=== PATIENT | female | born 1965 | race African-American/Black ===

== ENCOUNTER 2019-01-23 15:10 | Inpatient (IN) | payer OTHER ==
[2019-01-23 18:52] VITALS: BMI 30.8
--- NOTE | 2019-01-23 21:56 | HP ---
COWS - Scale Resting Pulse: 0= MS 80 or Below Sweatin= Chills/Flushing Restless Observation: 3= Extraneous Movement Pupil Size: 0= Normal to Room Light Bone or Joint Aches: 4=Acute Joint/Muscle Pain Runny Nose/ Eye Tearin= Runny Nose/Eyes GI Upset > 30mins: 1= Stomach Cramp Tremor Observation: 1= Tremor Garber, Not Seen Yawning Observation: 1= 1-2x During Session Anxiety or Irritability: 2=Irritable/Anxious Goose Flesh Skin: 0=Smooth Skin COWS Score: 15 CIWA Score Nausea/Vomitin-No Nausea/No Vomiting Muscle Tremors: 1-None Visible, but Garber Anxiety: 4-Mod. Anxious/Guarded Agitation: 4-Moderately Restless Paroxysmal Sweats: 3 Orientation: 1-Uncertain about Date Tacttile Disturbances: 3-Moderate Itch/Numb/Burn Auditory Disturbances: 0-None Visual Disturbances: 3-Moderate Sensitivity Headache: 3-Moderate CIWA-Ar Total Score: 22 - Admission Criteria OASAS Guidelines: Admission for Medically Managed Detox: Requires at least one of the followin. CIWA greater than 12 2. Seizures within the past 24 hours 3. Delirium tremens within the past 24 hours 4. Hallucinations within the past 24 hours 5. Acute intervention needed for co occurring medical disorder 6. Acute intervention needed for co occurring psychiatric disorder 7. Severe withdrawal that cannot be handled at a lower level of care (continued vomiting, continued diarrhea, abnormal vital signs) requiring intravenous medication and/or fluids 8. Admission ROS [facility] Chief Complaint: C/O WITHDRAWAL SX'S Allergies/Adverse Reactions: Allergies Allergy/AdvReac Type Severity Reaction Status Date / Time No Known Allergies Allergy Verified 01/23/19 18:44 History of Present Illness: 53 Y.O. FEMALE WITH ALCOHOLISM AND HEROIN DEPENDENCE HERE FOR DETOX. PRESENTS WITH C/O WITHDRAWAL SX'S. COWS 15/CIWA 22. SHE IS SELF REFERRED. STATES LAST DETOX WAS 3 YEARS AGO WHEN SHE WAS LAST HERE. REPORTS LONGEST CLEAN TIME 6 MONTHS WHILE INCARCERATED IN THE PAST 3 YEARS. REPORTS DAILY USE OF HEROIN/ ACOHOL. + EYE TEMPLATE FITTER. DENIES BLACK OUTS, SEIZURE D/O, DRUG OVERDOSE. + USE OF COCAINE. DOMICILED, SSI/D, PROBATION Exam Limitations: No Limitations - Ebola screening Have you traveled outside of the country in the last 21 days: No Have you had contact with anyone from an Ebola affected area: No Have you been sick,other than usual withdrawal symptoms: No Do you have a fever: No - Review of Systems Constitutional: Chills, Malaise, Night Sweats, Changes in sleep EENT: reports: Blurred Vision (GLASSES), Tearing, Nose Congestion (WITH RUNNY NOSE), Dental Problems (MISSING TEETH), Throat Pain (SORE THROAT) Respiratory: reports: No Symptoms reported Cardiac: reports: No Symptoms Reported GI: reports: Nausea, Poor Fluid Intake, Abdominal cramping : reports: No Symptoms Reported Musculoskeletal: reports: Back Pain, Joint Pain Integumentary: reports: Sweating Neuro: reports: Headache, Tingling, Tremors Endocrine: reports: No Symptoms Reported Hematology: reports: No Symptoms Reported Psychiatric: reports: Agitated (IRRITABLE), Anxious, Depressed (DENIES SI/HI), other Other Systems: Reviewed and Negative Patient History - Patient Medical History Hx Anemia: No Hx Asthma: Yes (ON ALBUTEROL INHALER) Hx Chronic Obstructive Pulmonary Disease (COPD): No Hx Cancer: No Hx Cardiac Disorders: No Hx Congestive Heart Failure: No Hx Hypertension: Yes (NOT COMPLIANT WITH MEDS) Hx Hypercholesterolemia: No Hx Pacemaker: No HX Cerebrovascular Accident: No Hx Seizures: No Hx Dementia: No Hx Diabetes: No Hx Gastrointestinal Disorders: No Hx Liver Disease: No Hx Genitourinary Disorders: No Hx Sexually Transmitted Disorders: No Hx Renal Disease (ESRD): No Hx Thyroid Disease: No Hx Human Immunodeficiency Virus (HIV): No Hx Hepatitis C: No Hx Depression: Yes Hx Suicide Attempt: No Hx Bipolar Disorder: Yes Hx Schizophrenia: No Other Medical History: DENIES - Patient Surgical History Past Surgical History: No Hx Neurologic Surgery: No Hx Cataract Extraction: No Hx Cardiac Surgery: No Hx Lung Surgery: No Hx Breast Surgery: No Hx Breast Biopsy: No Hx Abdominal Surgery: No Hx Appendectomy: No Hx Cholecystectomy: No Hx Genitourinary Surgery: No Hx Section: No Hx Orthopedic Surgery: No Anesthesia Reaction: No - PPD History Previous Implant?: Yes Documented Results: Negative w/proof Implanted On Prior R Admission?: Yes Date: 08/22/15 PPD to be Administered?: Yes - Reproductive History Patient is a Female of Child Bearing Age (11 -55 yrs old): Yes Last Menstrual Period: 12/24/17 LMP comment: MENAPAUSE Patient : No (NEG [facility] [place]) - Smoking Cessation Smoking history: Current every day smoker Aproximately how many cigarettes per day: 5 Cigars Per Day: 0 Hx Chewing Tobacco Use: No Initiated information on smoking cessation: Yes 'Breaking Loose' booklet given: 01/23/19 - Substance & Tx. History Substance Use Type: Alcohol, Cocaine, Heroin Hx Substance Use Treatment: Yes ([facility]) - Substances abused Alcohol Other (specify): LIQUOR Substance route: Oral Frequency: 3-6 times per week (3X A WEEK) Amount used: 1 pint, Age of first use: 21 Date of last use: 01/20/19 Heroin Substance route: Inhalation Frequency: Daily Amount used: 1 bundle/day Age of first use: 21 Date of last use: 01/22/19 Cocaine Substance route: Smoking Frequency: 3-6 times per week (3X) Amount used: $25 Age of first use: Date of last use: 01/20/19 Family Disease History - Family Disease History Family Disease History: Diabetes: Father, Heart Disease: Father Admission Physical Exam S - Vital Signs Vital Signs: Vital Signs - 24 hr 01/23/19 01/23/19 18:42 19:27 Temperature 98.5 F 98.5 F Pulse Rate 77 77 Respiratory 17 17 Rate Blood Pressure 174/96 H 174/96 H - Physical General Appearance: Yes: Moderate Distress, Irritable, Sweating, Anxious HEENTM: Yes: EOMI, Normocephalic, Normal Voice, EZEKIEL, Pharynx Normal, Rhinorrhea (with tearing of the eyes), Other (missing teeth) Respiratory: Yes: Chest Non-Tender, Lungs Clear, Normal Breath Sounds, No Respiratory Distress, No Accessory Muscle Use Neck: Yes: No masses,lesions,Nodules, Supple, Trachea in good position Breast: Yes: Breast Exam Deferred Cardiology: Yes: Regular Rhythm, Regular Rate, S1, S2 Abdominal: Yes: Non Tender, Soft Genitourinary: Yes: Within Normal Limits Back: Yes: Normal Inspection Musculoskeletal: Yes: full range of Motion, Gait Steady Extremities: Yes: Normal Capillary Refill, Normal Range of Motion, Non-Tender Neurological: Yes: Fully Oriented, Alert, Motor Strength 5/5, Depressed Affect Integumentary: Yes: Clammy Lymphatic: Yes: Within Normal Limits - Diagnostic (1) Opioid dependence with withdrawal Current Visit: Yes Status: Acute (2) Depression Current Visit: Yes Status: Acute Qualifiers: Depression Type: unspecified Qualified Code(s): F32.9 - Major depressive disorder, single episode, unspecified (3) Cocaine dependence Current Visit: Yes Status: Acute Qualifiers: Complication of substance-induced condition: with unspecified complication (4) Alcohol dependence with uncomplicated withdrawal Current Visit: Yes Status: Acute (5) Bipolar II disorder Current Visit: Yes Status: Chronic (6) Nicotine dependence Current Visit: Yes Status: Chronic Qualifiers: Nicotine product type: cigarettes Substance use status: uncomplicated Qualified Code(s): F17.210 - Nicotine dependence, cigarettes, uncomplicated (7) HTN (hypertension) Current Visit: Yes Status: Chronic Comment: not complaint with meds (8) Asthma Current Visit: Yes Status: Acute Qualifiers: Asthma severity: mild Asthma persistence: intermittent Asthma complication type: unspecified Qualified Code(s): J45.20 - Mild intermittent asthma, uncomplicated (9) Non compliance w medication regimen Current Visit: Yes Status: Acute Cleared for Admission S - Detox or Rehab [facility] Level of Care: Medically Managed Detox Regimen/Protocol: Methadone (W/ PRN CLONIDINE.WILL DETOX FROM HEROIN. CLIENT DRINKS 3 TIMES A WEEK. LAST USE 3 DAYS AGO) Claeared for Rehab Admission: No Breathalyzer - Breathalyzer Breathalyzer: 0 Urine Drug Screen - Test Device Lot number: [id number] Expiration date: 11/15/20 - Control Is test valid?: Yes - Results Drug screen NEGATIVE: No Urine drug screen results: CLARK-Cocaine, FEN-Fentanyl, MOP-Opiates Inpatient Rehab Admission - Rehab Decision to Admit Inpatient rehab admission?: No
[2019-01-23] MEDS ORDERED: P-EPHED 60MG/TRIPROLIDI 2.5MG TABLET PO PRN (22:08)
[2019-01-23] MEDS ORDERED: DICYCLOMINE HCL 10 MG CAPSULE PO PRN (22:08)
[2019-01-23] MEDS ORDERED: METHADONE HCL 10 MG TABLET (FOR DETOX USE ONLY) PO ONE (22:08)
[2019-01-23] MEDS ORDERED: NICOTINE POLACRILEX 2 MG GUM BUC PRN (22:08)
[2019-01-23] MEDS ORDERED: NALOXONE HCL 0.4 MG/ML VIAL IVPUSH PRN (22:08)
[2019-01-23] MEDS ORDERED: BISMUTH SUBSALICYLATE 524 MG/30 ML UD PO PRN (22:08)
[2019-01-23] MEDS ORDERED: MENTHOL/PHENOL 1 EACH UD MM PRN (22:08)
[2019-01-23] MEDS ORDERED: IBUPROFEN 400 MG TABLET (FP) PO PRN (22:08)
[2019-01-23] MEDS ORDERED: MAGNESIUM CITRATE 300 ML BOTTLE PO PRN (22:08)
[2019-01-23] MEDS ORDERED: ACETAMINOPHEN 325 MG TABLET (FP) PO PRN ×2 (22:08)
[2019-01-23] MEDS ORDERED: MAG HYDROX/AL HYDROX/SIMETH 30 ML UNIT-DOSE CUP PO PRN (22:08)
[2019-01-23] MEDS ORDERED: MAGNESIUM HYDROX 2400MG/30ML ORAL SUSPENSION 30 ML CUP PO PRN (22:08)
[2019-01-23] MEDS ORDERED: ONDANSETRON *ODT* 4 MG TABLET SL PRN (22:08)
[2019-01-23] MEDS ORDERED: guaiFENesin 200 MG/10 ML 10 ML UNIT-DOSE CUPS PO PRN (22:08)
[2019-01-23] MEDS: cloNIDine HCL 0.1 MG TABLET PO PRN (23:06)
[2019-01-24] MEDS ORDERED: METHADONE HCL 10 MG TABLET (FOR DETOX USE ONLY) ONE (08:38)
[2019-01-24] MEDS ORDERED: METHADONE HCL 5 MG TABLET (FOR DETOX USE ONLY) ONE (08:38)
[2019-01-24] MEDS ORDERED: METHADONE (DETOX) 20 MG, METHADONE (DETOX) 5 MG PO ONE (10:00)
[2019-01-24] MEDS: NICOTINE 14 MG/24 HOURS TOPICAL PATCH TD SCH (10:32)
[2019-01-24] MEDS: PRENATAL VITAMINS W/ FOLIC ACID TABLET (FP) PO SCH (10:32)
--- NOTE | 2019-01-24 11:32 | CONSULT ---
[facility] Psychiatric Consult - Data Date of interview: 01/24/19 Admission source: [facility] Identifying data: Patient is a 53 year old single female, mother of five, unemployed, domiciled and is supported by SSI/SSD. This is patient's first admission to detox at [facility]. Patient admitted to for alcohol, cocaine, and opiate dependence. Substance Abuse History: Smoking Cessation. Smoking history: Current every day smoker. Aproximately how many cigarettes per day: 5. Cigars Per Day: 0. Hx Chewing Tobacco Use: No. Initiated information on smoking cessation: Yes. ' Breaking Loose' booklet given: 01/23/19. - Substance & Tx. History. Substance Use Type: Alcohol, Cocaine, Heroin. Hx Substance Use Treatment: Yes ([facility]). - Substances abused. Alcohol. Other (specify): LIQUOR. Substance route: Oral. Frequency: 3-6 times per week (3X A WEEK). Amount used: 1 pint,. Age of first use: 21. Date of last use: 01/20/19. Heroin. Substance route: Inhalation. Frequency: Daily. Amount used: 1 bundle/day. Age of first use: 21. Date of last use: 01/22/19. Cocaine. Substance route: Smoking. Frequency: 3-6 times per week (3X). Amount used: $25. Age of first use: 21. Date of last use: 01/20/19 Medical History: Asthma, hypertension. Psychiatric History: Patient denies h/o psychiatric hospitalization and suicide attempt. Patient's first psychiatric contact occured last year at [facility] outpatient clinic. She reports seeking psychiatric care due to her depression. States she was diagnosed with bipolar disorder, depressive type and was prescribed abilify 30mg + remeron 30mg. Ms. Luciano reports medication nonadherence for over one month due to her drug use. At present patient reports feeling better because she is currently in detox but is experiencing difficulty sleeping. Physical/Sexual Abuse/Trauma History: denies. Mental Status Exam - Mental Status Exam Alert and Oriented to: Time, Place, Person Cognitive Function: Good Patient Appearance: Well Groomed Mood: Withdrawn Affect: Appropriate Patient Behavior: Cooperative Speech Pattern: Appropriate Voice Loudness: Normal Thought Process: Goal Oriented Thought Disorder: Not Present Hallucinations: Denies Suicidal Ideation: Denies Homicidal Ideation: Denies Insight/Judgement: Poor Sleep: Poorly Appetite: Fair Muscle strength/Tone: Normal Gait/Station: Normal Psychiatric Findings - Problem List ([place] 1, 2,3) (1) Alcohol dependence with uncomplicated withdrawal Current Visit: Yes Status: Acute (2) Cocaine dependence Current Visit: Yes Status: Acute Qualifiers: Complication of substance-induced condition: with unspecified complication (3) Opioid dependence with withdrawal Current Visit: Yes Status: Acute (4) Bipolar II disorder Current Visit: Yes Status: Chronic - Initial Treatment Plan Initial Treatment Plan: Psychoeducation provided. Detoxification in progress. Will order Mirtzapine 15mg HS. Benefits and side effects discussed. Verbal consent given.
[2019-01-24 12:12] LABS: HEMATOCRIT 38.1 % (32.4-45.2); HEMOGLOBIN 12.5 GM/dL (10.7-15.3); MCH 32.9 pg (25.7-33.7); MCHC 32.9 g/dl (32.0-36.0); MEAN PLT VOLUME 7.5 fl (7.5-11.1); PLATELET COUNT 262 K/MM3 (134-434); RBC 3.81 M/mm3 (3.60-5.2); RDW 13.7 % (11.6-15.6); WHITE BLOOD COUNT 5.5 K/mm3 (4.0-10.0)
[2019-01-24 12:50] LABS: ALBUMIN 3.5 g/dl (3.4-5.0); BILIRUBIN,TOTAL 0.6 mg/dL (0.2-1); BLOOD UREA NITROGEN 16.4 mg/dL (7-18); CALCIUM 8.8 mg/dL (8.5-10.1); CREATININE 0.9 mg/dL (0.55-1.3); POTASSIUM 3.6 mmol/L (3.5-5.1); TOT PROT 6.9 g/dl (6.4-8.2)
--- NOTE | 2019-01-24 13:42 | PN ---
S COWS - Scale Resting Pulse: 0= DC 80 or Below Sweatin= Chills/Flushing Restless Observation: 1= Difficult to Sit Still Pupil Size: 1= Pupils >than Normal Bone or Joint Aches: 2= Severe Diffuse Aches Runny Nose/ Eye Tearin= Runny Nose/Eyes GI Upset > 30mins: 2= Nausea/Diarrhea Tremor Observation of Outstretched Hands: 2= Slight Tremor Visible Yawning Observation: 1= 1-2x During Session Anxiety or Irritability: 2=Irritable/Anxious Goose Flesh Skin: 3=Piloerection COWS Score: 17 S Progress Note (SOAP) Subjective: body aches tired low energy tremor body aches indigestion Objective: 01/24/19 13:39 Vital Signs Temperature 99.4 F 01/24/19 13:02 Pulse Rate 68 01/24/19 13:02 Respiratory Rate 16 01/24/19 13:02 Blood Pressure 150/85 01/24/19 13:02 O2 Sat by Pulse Oximetry (%) Laboratory Last Values WBC 5.5 K/mm3 (4.0-10.0) 01/24/19 08:30 RBC 3.81 M/mm3 (3.60-5.2) 01/24/19 08:30 Hgb 12.5 GM/dL (10.7-15.3) 01/24/19 08:30 Hct 38.1 % (32.4-45.2) 01/24/19 08:30 MCV 100.0 fl (80-96) H 01/24/19 08:30 MCH 32.9 pg (25.7-33.7) 01/24/19 08:30 MCHC 32.9 g/dl (32.0-36.0) 01/24/19 08:30 RDW 13.7 % (11.6-15.6) 01/24/19 08:30 Plt Count 262 K/MM3 (134-434) 01/24/19 08:30 MPV 7.5 fl (7.5-11.1) 01/24/19 08:30 Sodium 140 mmol/L (136-145) 01/24/19 08:30 Potassium 3.6 mmol/L (3.5-5.1) 01/24/19 08:30 Chloride 105 mmol/L (98-107) 01/24/19 08:30 Carbon Dioxide 28 mmol/L (21-32) 01/24/19 08:30 Anion Gap 7 MMOL/L (8-16) L 01/24/19 08:30 BUN 16.4 mg/dL (7-18) 01/24/19 08:30 Creatinine 0.9 mg/dL (0.55-1.3) 01/24/19 08:30 Est GFR (CKD-EPI)AfAm 84.01 01/24/19 08:30 Est GFR (CKD-EPI)NonAf 72.49 01/24/19 08:30 Random Glucose 108 mg/dL (74-106) H 01/24/19 08:30 Calcium 8.8 mg/dL (8.5-10.1) 01/24/19 08:30 Total Bilirubin 0.6 mg/dL (0.2-1) 01/24/19 08:30 AST 22 U/L (15-37) 01/24/19 08:30 ALT 32 U/L (13-61) 01/24/19 08:30 Alkaline Phosphatase 72 U/L (45-117) 01/24/19 08:30 Total Protein 6.9 g/dl (6.4-8.2) 01/24/19 08:30 Albumin 3.5 g/dl (3.4-5.0) 01/24/19 08:30 POC Urine HCG, Qual Negative 01/23/19 22:08 lab noted Assessment: 01/24/19 13:42 opiate withdrawal sx Plan: continue opiate detox
--- NOTE | 2019-01-24 14:35 | EKG ---
Test Reason : Blood Pressure : / mmHG Vent. Rate : 067 BPM Atrial Rate : 067 BPM P-R Int : 158 ms QRS Dur : 082 ms QT Int : 434 ms P-R-T Axes : 028 003 020 degrees QTc Int : 458 ms NORMAL SINUS RHYTHM NORMAL ECG NO PREVIOUS ECGS AVAILABLE Confirmed by Hussein Araiza ([id number]) on 01/24/2019 2:34:28 PM Referred By: Confirmed By:Hussein Araiza
[2019-01-24 14:51] LABS: EPI CELLS 24.8 /HPF (0-5/HPF); HYALINE CASTS 11 /lpf (0-8); PH,URINE 6.5 (5.0-8.0); URINE APPEARANCE CLOUDY; URINE BILIRUBIN NEGATIVE (NEGATIVE); URINE COLOR YELLOW; URINE GLUCOSE (UA) NEGATIVE (NEGATIVE); URINE KETONE NEGATIVE (NEGATIVE); URINE LEUK ESTERASE 1+ (NEGATIVE); URINE NITRITE NEGATIVE (NEGATIVE); URINE PROTEIN NEGATIVE (NEGATIVE); URINE WBC 40 /hpf (0-5)
[2019-01-24 15:53] LABS: URINE RBC 3.4 /hpf (0-4)
[2019-01-24] MEDS: cloNIDine HCL 0.1 MG TABLET PO PRN (19:13)
[2019-01-24] MEDS: MELATONIN 5 MG TABLETS PO PRN (22:36)
[2019-01-24] MEDS: MIRTAZAPINE 15 MG TABLET (FP) PO SCH (22:36)
[2019-01-24] MEDS: THIAMINE HCL 100 MG TABLET (FP) PO SCH (22:37)
[2019-01-25] MEDS: PRENATAL VITAMINS W/ FOLIC ACID TABLET (FP) PO SCH (09:59)
[2019-01-25] MEDS ORDERED: METHADONE HCL 10 MG TABLET (FOR DETOX USE ONLY) PO ONE (10:00)
[2019-01-25] MEDS: NICOTINE 14 MG/24 HOURS TOPICAL PATCH TD SCH (10:00)
--- NOTE | 2019-01-25 12:33 | PN ---
S COWS - Scale Resting Pulse: 0= SC 80 or Below Sweatin= Chills/Flushing Restless Observation: 1= Difficult to Sit Still Pupil Size: 0= Normal to Room Light Bone or Joint Aches: 2= Severe Diffuse Aches Runny Nose/ Eye Tearin= Runny Nose/Eyes GI Upset > 30mins: 1= Stomach Cramp Tremor Observation of Outstretched Hands: 2= Slight Tremor Visible Yawning Observation: 2= >3x During Session Anxiety or Irritability: 2=Irritable/Anxious Goose Flesh Skin: 0=Smooth Skin COWS Score: 13 S Progress Note (SOAP) Subjective: resting on bed most of the day cooperative but limited conversation with staff body aches tremor anxiety encourage medication assisted treatment program Objective: 01/25/19 12:36 Vital Signs Temperature 97.3 F L 01/25/19 09:10 Pulse Rate 69 01/25/19 09:10 Respiratory Rate 16 01/25/19 09:10 Blood Pressure 117/59 L 01/25/19 09:10 O2 Sat by Pulse Oximetry (%) Laboratory Last Values WBC 5.5 K/mm3 (4.0-10.0) 01/24/19 08:30 RBC 3.81 M/mm3 (3.60-5.2) 01/24/19 08:30 Hgb 12.5 GM/dL (10.7-15.3) 01/24/19 08:30 Hct 38.1 % (32.4-45.2) 01/24/19 08:30 MCV 100.0 fl (80-96) H 01/24/19 08:30 MCH 32.9 pg (25.7-33.7) 01/24/19 08:30 MCHC 32.9 g/dl (32.0-36.0) 01/24/19 08:30 RDW 13.7 % (11.6-15.6) 01/24/19 08:30 Plt Count 262 K/MM3 (134-434) 01/24/19 08:30 MPV 7.5 fl (7.5-11.1) 01/24/19 08:30 Sodium 140 mmol/L (136-145) 01/24/19 08:30 Potassium 3.6 mmol/L (3.5-5.1) 01/24/19 08:30 Chloride 105 mmol/L (98-107) 01/24/19 08:30 Carbon Dioxide 28 mmol/L (21-32) 01/24/19 08:30 Anion Gap 7 MMOL/L (8-16) L 01/24/19 08:30 BUN 16.4 mg/dL (7-18) 01/24/19 08:30 Creatinine 0.9 mg/dL (0.55-1.3) 01/24/19 08:30 Est GFR (CKD-EPI)AfAm 84.01 01/24/19 08:30 Est GFR (CKD-EPI)NonAf 72.49 01/24/19 08:30 Random Glucose 108 mg/dL (74-106) H 01/24/19 08:30 Calcium 8.8 mg/dL (8.5-10.1) 01/24/19 08:30 Total Bilirubin 0.6 mg/dL (0.2-1) 01/24/19 08:30 AST 22 U/L (15-37) 01/24/19 08:30 ALT 32 U/L (13-61) 01/24/19 08:30 Alkaline Phosphatase 72 U/L (45-117) 01/24/19 08:30 Total Protein 6.9 g/dl (6.4-8.2) 01/24/19 08:30 Albumin 3.5 g/dl (3.4-5.0) 01/24/19 08:30 Urine Color Yellow 01/24/19 12:19 Urine Appearance Cloudy 01/24/19 12:19 Urine pH 6.5 (5.0-8.0) D 01/24/19 12:19 Ur Specific [place] 1.024 (1.010-1.035) 01/24/19 12:19 Urine Protein Negative (NEGATIVE) 01/24/19 12:19 Urine Glucose (UA) Negative (NEGATIVE) 01/24/19 12:19 Urine Ketones Negative (NEGATIVE) 01/24/19 12:19 Urine Blood Negative (NEGATIVE) 01/24/19 12:19 Urine Nitrite Negative (NEGATIVE) 01/24/19 12:19 Urine Bilirubin Negative (NEGATIVE) 01/24/19 12:19 Urine Urobilinogen 1.0 mg/dL (0.2-1.0) 01/24/19 12:19 Ur Leukocyte Esterase 1+ (NEGATIVE) H 01/24/19 12:19 Urine WBC (Auto) 40 /hpf (0-5) 01/24/19 12:19 Urine RBC (Auto) 3.4 /hpf (0-4) 01/24/19 12:19 Urine Casts (Auto) 11 /lpf (0-8) 01/24/19 12:19 U Epithel Cells (Auto) 24.8 /HPF (0-5/HPF) 01/24/19 12:19 Urine Bacteria (Auto) 1752.0 /hpf (NEGATIVE) 01/24/19 12:19 POC Urine HCG, Qual Negative 01/23/19 22:08 RPR Titer Nonreactive (NONREACTIVE) 01/24/19 08:30 lab noted 01/25/19 12:37 Assessment: 01/25/19 12:37 opiate withdrawal sx Plan: continue opiate detox
[2019-01-25] MEDS: MIRTAZAPINE 15 MG TABLET (FP) PO SCH (21:24)
[2019-01-25] MEDS: MELATONIN 5 MG TABLETS PO PRN (21:24)
[2019-01-25] MEDS: THIAMINE HCL 100 MG TABLET (FP) PO SCH (21:24)
[2019-01-25] MEDS: clonazePAM 0.5 MG TABLET PO PRN (21:26)
[2019-01-25] MEDS: cloNIDine HCL 0.1 MG TABLET PO PRN (21:26)
[2019-01-26] MEDS ORDERED: METHADONE HCL 10 MG TABLET (FOR DETOX USE ONLY) ONE (09:29)
[2019-01-26] MEDS ORDERED: METHADONE HCL 5 MG TABLET (FOR DETOX USE ONLY) ONE (09:30)
[2019-01-26] MEDS ORDERED: METHADONE (DETOX) 10 MG, METHADONE (DETOX) 5 MG PO ONE (10:00)
[2019-01-26] MEDS: PRENATAL VITAMINS W/ FOLIC ACID TABLET (FP) PO SCH (10:38)
[2019-01-26] MEDS: NICOTINE 14 MG/24 HOURS TOPICAL PATCH TD SCH (10:38)
--- NOTE | 2019-01-26 15:06 | PN ---
[facility] COWS - Scale Resting Pulse: 0= MD 80 or Below Sweatin= Chills/Flushing Restless Observation: 0= Sits Still Pupil Size: 0= Normal to Room Light Bone or Joint Aches: 1= Mild Discomfort Runny Nose/ Eye Tearin= Nasal Congestion GI Upset > 30mins: 1= Stomach Cramp Tremor Observation of Outstretched Hands: 2= Slight Tremor Visible Yawning Observation: 2= >3x During Session Anxiety or Irritability: 2=Irritable/Anxious Goose Flesh Skin: 0=Smooth Skin COWS Score: 10 S Progress Note (SOAP) Subjective: 53 years old female admitted on 01/23/19 for opiate withdrawal sx medical history of hypertension and asthma discuss smoking secession Objective: 01/26/19 15:10 Vital Signs Temperature 98.1 F 01/26/19 14:28 Pulse Rate 65 01/26/19 14:28 Respiratory Rate 19 01/26/19 14:28 Blood Pressure 130/72 01/26/19 14:28 O2 Sat by Pulse Oximetry (%) Laboratory Last Values WBC 5.5 K/mm3 (4.0-10.0) 01/24/19 08:30 RBC 3.81 M/mm3 (3.60-5.2) 01/24/19 08:30 Hgb 12.5 GM/dL (10.7-15.3) 01/24/19 08:30 Hct 38.1 % (32.4-45.2) 01/24/19 08:30 MCV 100.0 fl (80-96) H 01/24/19 08:30 MCH 32.9 pg (25.7-33.7) 01/24/19 08:30 MCHC 32.9 g/dl (32.0-36.0) 01/24/19 08:30 RDW 13.7 % (11.6-15.6) 01/24/19 08:30 Plt Count 262 K/MM3 (134-434) 01/24/19 08:30 MPV 7.5 fl (7.5-11.1) 01/24/19 08:30 Sodium 140 mmol/L (136-145) 01/24/19 08:30 Potassium 3.6 mmol/L (3.5-5.1) 01/24/19 08:30 Chloride 105 mmol/L (98-107) 01/24/19 08:30 Carbon Dioxide 28 mmol/L (21-32) 01/24/19 08:30 Anion Gap 7 MMOL/L (8-16) L 01/24/19 08:30 BUN 16.4 mg/dL (7-18) 01/24/19 08:30 Creatinine 0.9 mg/dL (0.55-1.3) 01/24/19 08:30 Est GFR (CKD-EPI)AfAm 84.01 01/24/19 08:30 Est GFR (CKD-EPI)NonAf 72.49 01/24/19 08:30 Random Glucose 108 mg/dL (74-106) H 01/24/19 08:30 Calcium 8.8 mg/dL (8.5-10.1) 01/24/19 08:30 Total Bilirubin 0.6 mg/dL (0.2-1) 01/24/19 08:30 AST 22 U/L (15-37) 01/24/19 08:30 ALT 32 U/L (13-61) 01/24/19 08:30 Alkaline Phosphatase 72 U/L (45-117) 01/24/19 08:30 Total Protein 6.9 g/dl (6.4-8.2) 01/24/19 08:30 Albumin 3.5 g/dl (3.4-5.0) 01/24/19 08:30 Urine Color Yellow 01/24/19 12:19 Urine Appearance Cloudy 01/24/19 12:19 Urine pH 6.5 (5.0-8.0) D 01/24/19 12:19 Ur Specific [place] 1.024 (1.010-1.035) 01/24/19 12:19 Urine Protein Negative (NEGATIVE) 01/24/19 12:19 Urine Glucose (UA) Negative (NEGATIVE) 01/24/19 12:19 Urine Ketones Negative (NEGATIVE) 01/24/19 12:19 Urine Blood Negative (NEGATIVE) 01/24/19 12:19 Urine Nitrite Negative (NEGATIVE) 01/24/19 12:19 Urine Bilirubin Negative (NEGATIVE) 01/24/19 12:19 Urine Urobilinogen 1.0 mg/dL (0.2-1.0) 01/24/19 12:19 Ur Leukocyte Esterase 1+ (NEGATIVE) H 01/24/19 12:19 Urine WBC (Auto) 40 /hpf (0-5) 01/24/19 12:19 Urine RBC (Auto) 3.4 /hpf (0-4) 01/24/19 12:19 Urine Casts (Auto) 11 /lpf (0-8) 01/24/19 12:19 U Epithel Cells (Auto) 24.8 /HPF (0-5/HPF) 01/24/19 12:19 Urine Bacteria (Auto) 1752.0 /hpf (NEGATIVE) 01/24/19 12:19 POC Urine HCG, Qual Negative 01/23/19 22:08 RPR Titer Nonreactive (NONREACTIVE) 01/24/19 08:30 lab noted 01/26/19 15:12 Assessment: 01/26/19 15:13 opiate withdrawal sx Plan: continue opiate detox
[2019-01-26] MEDS: MIRTAZAPINE 15 MG TABLET (FP) PO SCH (22:08)
[2019-01-26] MEDS: MELATONIN 5 MG TABLETS PO PRN (22:08)
[2019-01-26] MEDS: THIAMINE HCL 100 MG TABLET (FP) PO SCH (22:08)
[2019-01-26] MEDS: METHOCARBAMOL 500 MG TABLET PO PRN (22:11)
[2019-01-27] MEDS ORDERED: METHADONE HCL 10 MG TABLET (FOR DETOX USE ONLY) PO ONE (10:00)
[2019-01-27] MEDS: NICOTINE 14 MG/24 HOURS TOPICAL PATCH TD SCH (10:29)
[2019-01-27] MEDS: PRENATAL VITAMINS W/ FOLIC ACID TABLET (FP) PO SCH (10:29)
[2019-01-27] MEDS: METHOCARBAMOL 500 MG TABLET PO PRN ×2 (13:01→21:55)
[2019-01-27] MEDS: clonazePAM 0.5 MG TABLET PO PRN (13:01)
--- NOTE | 2019-01-27 16:08 | PN ---
[facility] CIWA - CIWA Score Nausea/Vomitin-No Nausea/No Vomiting Muscle Tremors: None Anxiety: 0-No Anxiety, at Ease Agitation: 2 Paroxysmal Sweats: No Perspiration Orientation: 0-Oriented Tacttile Disturbances: 0-None Auditory Disturbances: 0-None Visual Disturbances: 0-None Headache: 0-None Present CIWA-Ar Total Score: 2 BHS Progress Note (SOAP) Subjective: Patient denies current Withdrawal / Detox symptoms and reports that he feels well overall at this time. Objective: PATIENT A & O X 3, OBSERVED AMBULATING ON UNIT UNASSISTED. IN NO ACUTE DISTRESS. 01/27/19 16:06 Vital Signs Temperature 96.9 F L 01/27/19 13:12 Pulse Rate 86 01/27/19 13:12 Respiratory Rate 18 01/27/19 13:12 Blood Pressure 124/77 01/27/19 13:12 O2 Sat by Pulse Oximetry (%) Laboratory Tests 01/23/19 01/24/19 01/24/19 22:08 08:30 08:30 WBC 5.5 RBC 3.81 Hgb 12.5 Hct 38.1 MCV 100.0 H MCH 32.9 MCHC 32.9 RDW 13.7 Plt Count 262 MPV 7.5 Sodium 140 Potassium 3.6 Chloride 105 Carbon Dioxide 28 Anion Gap 7 L BUN 16.4 Creatinine 0.9 Est GFR (CKD-EPI)AfAm 84.01 Est GFR (CKD-EPI)NonAf 72.49 Random Glucose 108 H Calcium 8.8 Total Bilirubin 0.6 AST 22 ALT 32 Alkaline Phosphatase 72 Total Protein 6.9 Albumin 3.5 Urine Color Urine Appearance Urine pH Ur Specific [place] Urine Protein Urine Glucose (UA) Urine Ketones Urine Blood Urine Nitrite Urine Bilirubin Urine Urobilinogen Ur Leukocyte Esterase Urine WBC (Auto) Urine RBC (Auto) Urine Casts (Auto) U Epithel Cells (Auto) Urine Bacteria (Auto) POC Urine HCG, Qual Negative RPR Titer 01/24/19 01/24/19 08:30 12:19 WBC RBC Hgb Hct MCV MCH MCHC RDW Plt Count MPV Sodium Potassium Chloride Carbon Dioxide Anion Gap BUN Creatinine Est GFR (CKD-EPI)AfAm Est GFR (CKD-EPI)NonAf Random Glucose Calcium Total Bilirubin AST ALT Alkaline Phosphatase Total Protein Albumin Urine Color Yellow Urine Appearance Cloudy Urine pH 6.5 D Ur Specific [place] 1.024 Urine Protein Negative Urine Glucose (UA) Negative Urine Ketones Negative Urine Blood Negative Urine Nitrite Negative Urine Bilirubin Negative Urine Urobilinogen 1.0 Ur Leukocyte Esterase 1+ H Urine WBC (Auto) 40 Urine RBC (Auto) 3.4 Urine Casts (Auto) 11 U Epithel Cells (Auto) 24.8 Urine Bacteria (Auto) 1752.0 POC Urine HCG, Qual RPR Titer Nonreactive LABS NOTED. Assessment: 01/27/19 16:08 WITHDRAWAL SYMPTOMS. Plan: CONTINUE DETOX. INCREASE DAILY PO WATER INTAKE. PATIENT SCHEDULED FOR D/C FROM DETOX UNIT TOMORROW.
[2019-01-27] MEDS: MELATONIN 5 MG TABLETS PO PRN (21:55)
[2019-01-27] MEDS: MIRTAZAPINE 15 MG TABLET (FP) PO SCH (21:55)
[2019-01-27] MEDS: THIAMINE HCL 100 MG TABLET (FP) PO SCH (21:55)
[2019-01-28] MEDS ORDERED: METHADONE HCL 5 MG TABLET (FOR DETOX USE ONLY) PO ONE (06:00)
[2019-01-28 07:02] VITALS: BP 155/86; PULSE 58; TEMP 97.2
--- NOTE | 2019-01-28 19:30 | DS ---
[facility] Detox Discharge Summary Admission Date: 01/23/19 Discharge Date: 01/28/19 - History Present History: Alcohol Dependence, Cocaine Dependence, Opioid Dependence Additional Comments: PATIENT REFERRED TO [facility] ([place], [place]) FOR AFTERCARE. PATIENT WAS DISCHARGED FROM DETOX UNIT IN STABLE MEDICAL CONDITION. Pertinent Past History: Asthma, HTN, Depression, Bipolar II Disorder, Nicotine Dependence. - Physical Exam Results Vital Signs: Vital Signs Temperature 97.2 F L 01/28/19 07:02 Pulse Rate 58 L 01/28/19 07:02 Respiratory Rate 18 01/28/19 07:02 Blood Pressure 155/86 01/28/19 07:02 O2 Sat by Pulse Oximetry (%) Pertinent Admission Physical Exam Findings: WITHDRAWAL SYMPTOMS. Laboratory Tests 01/23/19 01/24/19 01/24/19 22:08 08:30 08:30 WBC 5.5 RBC 3.81 Hgb 12.5 Hct 38.1 MCV 100.0 H MCH 32.9 MCHC 32.9 RDW 13.7 Plt Count 262 MPV 7.5 Sodium 140 Potassium 3.6 Chloride 105 Carbon Dioxide 28 Anion Gap 7 L BUN 16.4 Creatinine 0.9 Est GFR (CKD-EPI)AfAm 84.01 Est GFR (CKD-EPI)NonAf 72.49 Random Glucose 108 H Calcium 8.8 Total Bilirubin 0.6 AST 22 ALT 32 Alkaline Phosphatase 72 Total Protein 6.9 Albumin 3.5 Urine Color Urine Appearance Urine pH Ur Specific [place] Urine Protein Urine Glucose (UA) Urine Ketones Urine Blood Urine Nitrite Urine Bilirubin Urine Urobilinogen Ur Leukocyte Esterase Urine WBC (Auto) Urine RBC (Auto) Urine Casts (Auto) U Epithel Cells (Auto) Urine Bacteria (Auto) POC Urine HCG, Qual Negative RPR Titer 01/24/19 01/24/19 08:30 12:19 WBC RBC Hgb Hct MCV MCH MCHC RDW Plt Count MPV Sodium Potassium Chloride Carbon Dioxide Anion Gap BUN Creatinine Est GFR (CKD-EPI)AfAm Est GFR (CKD-EPI)NonAf Random Glucose Calcium Total Bilirubin AST ALT Alkaline Phosphatase Total Protein Albumin Urine Color Yellow Urine Appearance Cloudy Urine pH 6.5 D Ur Specific [place] 1.024 Urine Protein Negative Urine Glucose (UA) Negative Urine Ketones Negative Urine Blood Negative Urine Nitrite Negative Urine Bilirubin Negative Urine Urobilinogen 1.0 Ur Leukocyte Esterase 1+ H Urine WBC (Auto) 40 Urine RBC (Auto) 3.4 Urine Casts (Auto) 11 U Epithel Cells (Auto) 24.8 Urine Bacteria (Auto) 1752.0 POC Urine HCG, Qual RPR Titer Nonreactive LABS NOTED. - Treatment Hospital Course: Detox Protocol Followed, Detoxed Safely, Responded well, Discharged Condition Good Patient has Accepted a Rehab Referral to: PATIENT REFERRED TO [facility] ([place], [place]). - Medication Discharge Medications: Ambulatory Orders Aripiprazole [Abilify -] 30 mg PO DAILY 08/20/15 Mirtazapine [Remeron -] 30 mg PO HS #30 tablet 09/13/15 Albuterol Sulfate Inhaler - [Ventolin Hfa *Inhaler*] 2 inh IH Q4H PRN #1 inhaler 01/27/19 - Diagnosis (1) Alcohol dependence with uncomplicated withdrawal Status: Acute (2) Asthma Status: Acute Qualifiers: Asthma severity: mild Asthma persistence: intermittent Asthma complication type: unspecified Qualified Code(s): J45.20 - Mild intermittent asthma, uncomplicated (3) Cocaine dependence Status: Acute Qualifiers: Substance use status: in withdrawal Qualified Code(s): F14.23 - Cocaine dependence with withdrawal (4) Depression Status: Acute Qualifiers: Depression Type: unspecified Qualified Code(s): F32.9 - Major depressive disorder, single episode, unspecified (5) Non compliance w medication regimen Status: Acute (6) Opioid dependence with withdrawal Status: Acute (7) Bipolar II disorder Status: Chronic (8) HTN (hypertension) Status: Chronic Qualifiers: Hypertension type: unspecified Qualified Code(s): I10 - Essential (primary ) hypertension (9) Nicotine dependence Status: Chronic Qualifiers: Nicotine product type: cigarettes Substance use status: uncomplicated Qualified Code(s): F17.210 - Nicotine dependence, cigarettes, uncomplicated - AMA Did Patient Leave Against Medical Advice: No
== END 2019-01-28 08:53 | disposition home or self-care (01) | DRG 773 ==
LOC: YASAS 15:10 → Y3N 22:38
PROVIDERS: ADMIT Surgery; ATTEND Surgery
PROC: HZ2ZZZZ Detoxification Services for Substance Abuse Treatment (ICD-10-PCS; principal; 2019-01-23)
DX: F10.230 Alcohol dependence with withdrawal, uncomplicated (principal); F11.23 Opioid dependence with withdrawal; F14.20 Cocaine dependence, uncomplicated; F17.210 Nicotine dependence, cigarettes, uncomplicated; F31.81 Bipolar II disorder; F32.9 Major depressive disorder, single episode, unspecified; I10 Essential (primary) hypertension; J45.909 Unspecified asthma, uncomplicated; Z91.14 Patient's other noncompliance with medication regimen
CPT/HCPCS: 36415; 80053; 81003; 81025; 85027; 86593; 93005; 93010; J0735

== ENCOUNTER 2021-10-21 09:29 | Inpatient (IN) | payer OTHER ==
[2021-10-21] MEDS ORDERED: LOPERAMIDE HCL 2 MG CAPSULE PO PRN (09:57)
[2021-10-21] MEDS ORDERED: MAGNESIUM CITRATE 300 ML BOTTLE PO PRN (09:57)
[2021-10-21] MEDS ORDERED: IBUPROFEN 400 MG TABLET (FP) PO PRN (09:57)
[2021-10-21] MEDS ORDERED: P-EPHED 60MG/TRIPROLIDI 2.5MG TABLET PO PRN (09:57)
[2021-10-21] MEDS ORDERED: MAGNESIUM HYDROX 2400MG/30ML ORAL SUSPENSION 30 ML CUP PO PRN (09:57)
[2021-10-21] MEDS ORDERED: ACETAMINOPHEN 325 MG TABLET (FP) PO PRN (09:57)
[2021-10-21] MEDS ORDERED: guaiFENesin 200 MG/10 ML 10 ML UNIT-DOSE CUPS PO PRN (09:57)
[2021-10-21 10:27] VITALS: BMI 27.6
[2021-10-21 14:31] LABS: HEMATOCRIT 35.3 % (32.4-45.2); HEMOGLOBIN 11.7 GM/dL (10.7-15.3); MCH 33.4 pg (25.7-33.7); MCHC 33.1 g/dl (32.0-36.0); MEAN CELL VOLUME 100.9 fl (80-96); MEAN PLT VOLUME 7.4 fl (7.5-11.1); PLATELET COUNT 292 10^3/uL (134-434); RDW 13.8 % (11.6-15.6); WHITE BLOOD COUNT 4.6 K/mm3 (4.0-10.0)
[2021-10-21 14:47] LABS: ALBUMIN 3.5 g/dl (3.4-5.0); BLOOD UREA NITROGEN 16.8 mg/dL (7-18); CALCIUM 9.2 mg/dL (8.5-10.1)
[2021-10-21 14:50] LABS: CREATININE 1.1 mg/dL (0.55-1.3)
[2021-10-21 14:52] LABS: BILIRUBIN,TOTAL 0.4 mg/dL (0.2-1); TOT PROT 7.7 g/dl (6.4-8.2)
[2021-10-21 14:59] LABS: SYPHILIS W/ RPR CONF NON-REACTIVE (NONREACTIVE)
[2021-10-21] MEDS ORDERED: methaDONE HCL 10 MG TABLET PO ONE (15:12)
[2021-10-21] MEDS: NICOTINE 7 MG/24 HOURS TOPICAL PATCH TD SCH (15:37)
[2021-10-21] MEDS: PRENATAL VITAMINS W/ FOLIC ACID TABLET (FP) PO SCH (15:37)
[2021-10-21] MEDS ORDERED: methaDONE HCL 40 MG DISPERSABLE TABLET ONE (15:38)
[2021-10-21] MEDS ORDERED: TUBERCULIN PPD 5 TU/0.1ML VIAL ID ONE (15:39)
[2021-10-21] MEDS: hydrOXYzine PAMOATE 25 MG CAPSULE (FP) PO SCH (16:25)
[2021-10-21] MEDS ORDERED: ALBUTEROL SO4 HFA INHALER IH PRN (16:31)
[2021-10-21] MEDS: THIAMINE HCL 100 MG TABLET (FP) PO SCH (21:22)
[2021-10-21] MEDS: CHLORTHALIDONE 25 MG TABLET PO SCH (21:23)
[2021-10-21] MEDS: MELATONIN 5 MG TABLETS PO SCH (21:23)
[2021-10-21] MEDS: hydrOXYzine PAMOATE 25 MG CAPSULE (FP) PO PRN (21:23)
[2021-10-21] MEDS: amLODIPine BESYLATE 10 MG TABLET (FP) PO SCH (21:24)
[2021-10-22] MEDS ORDERED: methaDONE HCL 40 MG DISPERSABLE TABLET ONE (05:34)
[2021-10-22] MEDS ORDERED: methaDONE HCL 10 MG TABLET PO SCH (06:00)
[2021-10-22 10:11] LABS: EPI CELLS >36 /uL (0-25.1); HYALINE CASTS 4 /uL (0-3.1); PH,URINE 5.5 (5.0-8.0); URINE APPEARANCE CLOUDY; URINE BACTERIA 2173 /uL (0-1359); URINE BILIRUBIN NEGATIVE (NEGATIVE); URINE COLOR DK YELLOW; URINE GLUCOSE (UA) NEGATIVE (NEGATIVE); URINE KETONE NEGATIVE (NEGATIVE); URINE LEUK ESTERASE TRACE (NEGATIVE); URINE NITRITE NEGATIVE (NEGATIVE); URINE PROTEIN TRACE (NEGATIVE); URINE RBC 19 /uL (0-23.9); URINE WBC 73 /uL (0-25.8)
[2021-10-22] MEDS: amLODIPine BESYLATE 10 MG TABLET (FP) PO SCH (10:31)
[2021-10-22] MEDS: CHLORTHALIDONE 25 MG TABLET PO SCH (10:31)
[2021-10-22] MEDS: PRENATAL VITAMINS W/ FOLIC ACID TABLET (FP) PO SCH (10:31)
[2021-10-22] MEDS: NICOTINE 7 MG/24 HOURS TOPICAL PATCH TD SCH (10:31)
[2021-10-22] MEDS: NICOTINE 10 MG CARTRIDGE (INHALER) IH PRN (10:32)
[2021-10-22] MEDS: hydrOXYzine PAMOATE 25 MG CAPSULE (FP) PO PRN ×2 (10:34→21:30)
[2021-10-22] MEDS: hydrOXYzine PAMOATE 25 MG CAPSULE (FP) PO SCH (10:35)
[2021-10-22] MEDS: THIAMINE HCL 100 MG TABLET (FP) PO SCH (21:30)
[2021-10-22] MEDS: MELATONIN 5 MG TABLETS PO SCH (21:30)
[2021-10-23] MEDS ORDERED: methaDONE HCL 40 MG DISPERSABLE TABLET ONE (02:52)
[2021-10-23] MEDS: NICOTINE 10 MG CARTRIDGE (INHALER) IH PRN (10:39)
[2021-10-23] MEDS: PRENATAL VITAMINS W/ FOLIC ACID TABLET (FP) PO SCH (10:39)
[2021-10-23] MEDS: NICOTINE 7 MG/24 HOURS TOPICAL PATCH TD SCH (10:40)
[2021-10-23] MEDS: CHLORTHALIDONE 25 MG TABLET PO SCH (10:40)
[2021-10-23] MEDS: amLODIPine BESYLATE 10 MG TABLET (FP) PO SCH (10:40)
[2021-10-23] MEDS: THIAMINE HCL 100 MG TABLET (FP) PO SCH (21:28)
[2021-10-23] MEDS: MELATONIN 5 MG TABLETS PO SCH (21:28)
[2021-10-24] MEDS ORDERED: methaDONE HCL 40 MG DISPERSABLE TABLET ONE (02:36)
[2021-10-24] MEDS: CHLORTHALIDONE 25 MG TABLET PO SCH (10:36)
[2021-10-24] MEDS: NICOTINE 7 MG/24 HOURS TOPICAL PATCH TD SCH (10:36)
[2021-10-24] MEDS: PRENATAL VITAMINS W/ FOLIC ACID TABLET (FP) PO SCH (10:36)
[2021-10-24] MEDS: amLODIPine BESYLATE 10 MG TABLET (FP) PO SCH (10:36)
[2021-10-24] MEDS: TETRAHYDROZOLINE HCL EYE DROPS OU PRN (14:47)
[2021-10-24] MEDS: THIAMINE HCL 100 MG TABLET (FP) PO SCH (21:19)
[2021-10-24] MEDS: MELATONIN 5 MG TABLETS PO SCH (21:19)
[2021-10-25] MEDS ORDERED: methaDONE HCL 40 MG DISPERSABLE TABLET ONE (05:01)
[2021-10-25] MEDS: TETRAHYDROZOLINE HCL EYE DROPS OU PRN ×3 (06:44→21:44)
[2021-10-25] MEDS: CHLORTHALIDONE 25 MG TABLET PO SCH (10:34)
[2021-10-25] MEDS: PRENATAL VITAMINS W/ FOLIC ACID TABLET (FP) PO SCH (10:34)
[2021-10-25] MEDS: amLODIPine BESYLATE 10 MG TABLET (FP) PO SCH (10:34)
[2021-10-25] MEDS: NICOTINE 7 MG/24 HOURS TOPICAL PATCH TD SCH (11:18)
[2021-10-25] MEDS: THIAMINE HCL 100 MG TABLET (FP) PO SCH (21:45)
[2021-10-25] MEDS: MELATONIN 5 MG TABLETS PO SCH (21:45)
[2021-10-26 00:07] LABS: SARS-CoV-2 NAA Not Detected (Not Detected)
[2021-10-26] MEDS ORDERED: methaDONE HCL 40 MG DISPERSABLE TABLET ONE (03:07)
[2021-10-26] MEDS: amLODIPine BESYLATE 10 MG TABLET (FP) PO SCH (10:13)
[2021-10-26] MEDS: CHLORTHALIDONE 25 MG TABLET PO SCH (10:13)
[2021-10-26] MEDS: NICOTINE 7 MG/24 HOURS TOPICAL PATCH TD SCH (10:13)
[2021-10-26] MEDS: NICOTINE 10 MG CARTRIDGE (INHALER) IH PRN (10:13)
[2021-10-26] MEDS: PRENATAL VITAMINS W/ FOLIC ACID TABLET (FP) PO SCH (10:13)
[2021-10-26] MEDS: TETRAHYDROZOLINE HCL EYE DROPS OU PRN (10:13)
[2021-10-26] MEDS: MELATONIN 5 MG TABLETS PO SCH (21:47)
[2021-10-26] MEDS: THIAMINE HCL 100 MG TABLET (FP) PO SCH (21:47)
[2021-10-27] MEDS ORDERED: methaDONE HCL 40 MG DISPERSABLE TABLET ONE (03:14)
[2021-10-27] MEDS: NICOTINE 10 MG CARTRIDGE (INHALER) IH PRN (08:56)
[2021-10-27] MEDS: NICOTINE 7 MG/24 HOURS TOPICAL PATCH TD SCH (10:38)
[2021-10-27] MEDS: CHLORTHALIDONE 25 MG TABLET PO SCH (10:38)
[2021-10-27] MEDS: PRENATAL VITAMINS W/ FOLIC ACID TABLET (FP) PO SCH (10:38)
[2021-10-27] MEDS: amLODIPine BESYLATE 10 MG TABLET (FP) PO SCH (10:38)
[2021-10-27] MEDS: TETRAHYDROZOLINE HCL EYE DROPS OU PRN (10:39)
[2021-10-27] MEDS: THIAMINE HCL 100 MG TABLET (FP) PO SCH (21:33)
[2021-10-27] MEDS: MELATONIN 5 MG TABLETS PO SCH (21:34)
[2021-10-28] MEDS ORDERED: methaDONE HCL 40 MG DISPERSABLE TABLET ONE (03:47)
[2021-10-28] MEDS: amLODIPine BESYLATE 10 MG TABLET (FP) PO SCH (10:41)
[2021-10-28] MEDS: PRENATAL VITAMINS W/ FOLIC ACID TABLET (FP) PO SCH (10:41)
[2021-10-28] MEDS: TETRAHYDROZOLINE HCL EYE DROPS OU PRN (10:41)
[2021-10-28] MEDS: NICOTINE 7 MG/24 HOURS TOPICAL PATCH TD SCH (10:41)
[2021-10-28] MEDS: NICOTINE 10 MG CARTRIDGE (INHALER) IH PRN (10:42)
[2021-10-28] MEDS: CHLORTHALIDONE 25 MG TABLET PO SCH (10:42)
[2021-10-28] MEDS: MAG HYDROX/AL HYDROX/SIMETH 30 ML UNIT-DOSE CUP PO PRN (16:28)
[2021-10-28] MEDS: MELATONIN 5 MG TABLETS PO SCH (21:26)
[2021-10-28] MEDS: hydrOXYzine PAMOATE 25 MG CAPSULE (FP) PO PRN (21:27)
[2021-10-28] MEDS: THIAMINE HCL 100 MG TABLET (FP) PO SCH (21:27)
[2021-10-29] MEDS ORDERED: TRIMETHOBENZAMIDE HCL 200MG/2ML INJ IM ONE (05:54)
[2021-10-29] MEDS ORDERED: methaDONE HCL 40 MG DISPERSABLE TABLET ONE (05:56)
[2021-10-29] MEDS: MAG HYDROX/AL HYDROX/SIMETH 30 ML UNIT-DOSE CUP PO PRN (06:01)
[2021-10-29] MEDS: CHLORTHALIDONE 25 MG TABLET PO SCH (10:26)
[2021-10-29] MEDS: PRENATAL VITAMINS W/ FOLIC ACID TABLET (FP) PO SCH (10:26)
[2021-10-29] MEDS: NICOTINE 7 MG/24 HOURS TOPICAL PATCH TD SCH (10:27)
[2021-10-29] MEDS: amLODIPine BESYLATE 10 MG TABLET (FP) PO SCH (10:27)
[2021-10-29] MEDS: TETRAHYDROZOLINE HCL EYE DROPS OU PRN ×2 (10:27→21:32)
[2021-10-29] MEDS ORDERED: ONDANSETRON *ODT* 4 MG TABLET SL PRN (11:53)
[2021-10-29] MEDS: ARIPiprazole 10 MG TABLET PO SCH (21:33)
[2021-10-29] MEDS: MELATONIN 5 MG TABLETS PO SCH (21:33)
[2021-10-29] MEDS: THIAMINE HCL 100 MG TABLET (FP) PO SCH (21:33)
[2021-10-30] MEDS ORDERED: methaDONE HCL 40 MG DISPERSABLE TABLET ONE (04:14)
[2021-10-30] MEDS ORDERED: COLLOIDAL OATMEAL 1 BAR EACH TP PRN (09:46)
[2021-10-30] MEDS: ARIPiprazole 5 MG TABLET PO SCH (10:45)
[2021-10-30] MEDS: LISINOPRIL 10 MG TABLET PO SCH (10:46)
[2021-10-30] MEDS: PRENATAL VITAMINS W/ FOLIC ACID TABLET (FP) PO SCH (10:46)
[2021-10-30] MEDS: NICOTINE 7 MG/24 HOURS TOPICAL PATCH TD SCH (10:46)
[2021-10-30] MEDS: FLUoxetine HCL 20 MG CAPSULE PO SCH (10:46)
[2021-10-30] MEDS: amLODIPine BESYLATE 10 MG TABLET (FP) PO SCH (10:46)
[2021-10-30] MEDS: CHLORTHALIDONE 25 MG TABLET PO SCH (10:47)
[2021-10-30] MEDS: MELATONIN 5 MG TABLETS PO SCH (21:46)
[2021-10-30] MEDS: THIAMINE HCL 100 MG TABLET (FP) PO SCH (21:46)
[2021-10-30] MEDS: ARIPiprazole 10 MG TABLET PO SCH (21:46)
[2021-10-31] MEDS ORDERED: methaDONE HCL 40 MG DISPERSABLE TABLET ONE (03:56)
[2021-10-31] MEDS: NICOTINE 10 MG CARTRIDGE (INHALER) IH PRN (06:25)
[2021-10-31] MEDS: PRENATAL VITAMINS W/ FOLIC ACID TABLET (FP) PO SCH (10:05)
[2021-10-31] MEDS: ARIPiprazole 5 MG TABLET PO SCH (10:06)
[2021-10-31] MEDS: FLUoxetine HCL 20 MG CAPSULE PO SCH (10:07)
[2021-10-31] MEDS: CHLORTHALIDONE 25 MG TABLET PO SCH (10:07)
[2021-10-31] MEDS: amLODIPine BESYLATE 10 MG TABLET (FP) PO SCH (10:30)
[2021-10-31] MEDS: LISINOPRIL 10 MG TABLET PO SCH (10:30)
[2021-10-31] MEDS: NICOTINE 7 MG/24 HOURS TOPICAL PATCH TD SCH (11:17)
[2021-10-31] MEDS ORDERED: NICOTINE POLACRILEX 2 MG GUM BUC PRN (16:08)
[2021-10-31] MEDS: MELATONIN 5 MG TABLETS PO SCH (21:20)
[2021-10-31] MEDS: THIAMINE HCL 100 MG TABLET (FP) PO SCH (21:20)
[2021-10-31] MEDS: ARIPiprazole 10 MG TABLET PO SCH (21:20)
[2021-11-01] MEDS ORDERED: methaDONE HCL 40 MG DISPERSABLE TABLET ONE (06:05)
[2021-11-01] MEDS: amLODIPine BESYLATE 10 MG TABLET (FP) PO SCH (10:55)
[2021-11-01] MEDS: ARIPiprazole 5 MG TABLET PO SCH (10:56)
[2021-11-01] MEDS: PRENATAL VITAMINS W/ FOLIC ACID TABLET (FP) PO SCH (10:56)
[2021-11-01] MEDS: LISINOPRIL 10 MG TABLET PO SCH (10:56)
[2021-11-01] MEDS: FLUoxetine HCL 20 MG CAPSULE PO SCH (10:56)
[2021-11-01] MEDS: NICOTINE 7 MG/24 HOURS TOPICAL PATCH TD SCH (10:59)
[2021-11-01] MEDS: CHLORTHALIDONE 25 MG TABLET PO SCH (10:59)
[2021-11-01] MEDS ORDERED: BENZOCAINE/MENTHOL (CHLORASEPTIC ) LOZENGE MM PRN (12:18)
[2021-11-01] MEDS: MELATONIN 5 MG TABLETS PO SCH (21:56)
[2021-11-01] MEDS: THIAMINE HCL 100 MG TABLET (FP) PO SCH (21:56)
[2021-11-01] MEDS: TETRAHYDROZOLINE HCL EYE DROPS OU PRN (21:56)
[2021-11-01] MEDS: ARIPiprazole 10 MG TABLET PO SCH (21:57)
[2021-11-02] MEDS ORDERED: methaDONE HCL 40 MG DISPERSABLE TABLET ONE (06:13)
[2021-11-02] MEDS: FLUoxetine HCL 20 MG CAPSULE PO SCH (10:30)
[2021-11-02] MEDS: LISINOPRIL 10 MG TABLET PO SCH (10:30)
[2021-11-02] MEDS: PRENATAL VITAMINS W/ FOLIC ACID TABLET (FP) PO SCH (10:31)
[2021-11-02] MEDS: NICOTINE 7 MG/24 HOURS TOPICAL PATCH TD SCH (10:31)
[2021-11-02] MEDS: ARIPiprazole 5 MG TABLET PO SCH (10:31)
[2021-11-02] MEDS: CHLORTHALIDONE 25 MG TABLET PO SCH (10:31)
[2021-11-02] MEDS: amLODIPine BESYLATE 10 MG TABLET (FP) PO SCH (10:31)
[2021-11-02] MEDS: THIAMINE HCL 100 MG TABLET (FP) PO SCH (21:23)
[2021-11-02] MEDS: MELATONIN 5 MG TABLETS PO SCH (21:23)
[2021-11-02] MEDS: ARIPiprazole 10 MG TABLET PO SCH (21:23)
[2021-11-03] MEDS ORDERED: methaDONE HCL 40 MG DISPERSABLE TABLET ONE (05:23)
[2021-11-03] MEDS ORDERED: INSULIN (NOVOLOG) ASPART 100 UNITS/ML 10ML VIAL ONE (06:31)
[2021-11-03] MEDS: NICOTINE 7 MG/24 HOURS TOPICAL PATCH TD SCH (10:39)
[2021-11-03] MEDS: NICOTINE 10 MG CARTRIDGE (INHALER) IH PRN (10:39)
[2021-11-03] MEDS: PRENATAL VITAMINS W/ FOLIC ACID TABLET (FP) PO SCH (10:39)
[2021-11-03] MEDS: ARIPiprazole 5 MG TABLET PO SCH (10:40)
[2021-11-03] MEDS: LISINOPRIL 10 MG TABLET PO SCH (10:40)
[2021-11-03] MEDS: FLUoxetine HCL 20 MG CAPSULE PO SCH (10:40)
[2021-11-03] MEDS: CHLORTHALIDONE 25 MG TABLET PO SCH (10:40)
[2021-11-03] MEDS: amLODIPine BESYLATE 10 MG TABLET (FP) PO SCH (10:42)
[2021-11-03] MEDS: ARIPiprazole 10 MG TABLET PO SCH (21:34)
[2021-11-03] MEDS: TETRAHYDROZOLINE HCL EYE DROPS OU PRN (21:34)
[2021-11-03] MEDS: MELATONIN 5 MG TABLETS PO SCH (21:34)
[2021-11-03] MEDS: THIAMINE HCL 100 MG TABLET (FP) PO SCH (21:34)
[2021-11-04] MEDS ORDERED: methaDONE HCL 40 MG DISPERSABLE TABLET ONE (03:57)
[2021-11-04 07:16] VITALS: BP 103/63; PULSE 60; TEMP 98.2
[2021-11-04] MEDS: PRENATAL VITAMINS W/ FOLIC ACID TABLET (FP) PO SCH (09:32)
[2021-11-04] MEDS: ARIPiprazole 5 MG TABLET PO SCH (09:32)
[2021-11-04] MEDS: FLUoxetine HCL 20 MG CAPSULE PO SCH (09:33)
[2021-11-04] MEDS: LISINOPRIL 10 MG TABLET PO SCH (09:33)
[2021-11-04] MEDS: TETRAHYDROZOLINE HCL EYE DROPS OU PRN (09:34)
[2021-11-04] MEDS: NICOTINE 7 MG/24 HOURS TOPICAL PATCH TD SCH (09:35)
[2021-11-04] MEDS: CHLORTHALIDONE 25 MG TABLET PO SCH (09:35)
[2021-11-04] MEDS: amLODIPine BESYLATE 10 MG TABLET (FP) PO SCH (09:35)
== END 2021-11-04 09:30 | disposition home or self-care (01) | DRG 772 ==
LOC: YASAS 09:29 → Y5N 14:31
PROVIDERS: ADMIT Allergy & Immunology; ATTEND Allergy & Immunology
PROC: HZ42ZZZ Group Counseling for Substance Abuse Treatment, Cognitive-Behavioral (ICD-10-PCS; principal; 2021-10-21)
DX: F10.20 Alcohol dependence, uncomplicated (principal); F11.20 Opioid dependence, uncomplicated; F14.20 Cocaine dependence, uncomplicated; F17.210 Nicotine dependence, cigarettes, uncomplicated; F31.81 Bipolar II disorder; D36.13 Benign neoplasm of peripheral nerves and autonomic nervous system of lower limb, including hip; I10 Essential (primary) hypertension; J45.909 Unspecified asthma, uncomplicated; Z86.19 Personal history of other infectious and parasitic diseases; Z91.14 Patient's other noncompliance with medication regimen
CPT/HCPCS: 36415; 80053; 81003; 85027; 86780; 86803; 87086; 87522; 93005; 93010; C9803-CS; U0003; U0005

== ENCOUNTER 2021-12-17 12:10 | Inpatient (IN) | payer OTHER ==
[2021-12-17 12:32] VITALS: BMI 27.3
[2021-12-17] MEDS ORDERED: LOPERAMIDE HCL 2 MG CAPSULE PO PRN (13:22)
[2021-12-17] MEDS ORDERED: P-EPHED 60MG/TRIPROLIDI 2.5MG TABLET PO PRN (13:22)
[2021-12-17] MEDS ORDERED: NALOXONE HCL (KLOXXADO) 8 MG SPRAY NS PRN (13:22)
[2021-12-17] MEDS ORDERED: ACETAMINOPHEN 325 MG TABLET (FP) PO PRN (13:22)
[2021-12-17] MEDS ORDERED: IBUPROFEN 400 MG TABLET (FP) PO PRN (13:22)
[2021-12-17] MEDS ORDERED: NICOTINE POLACRILEX 2 MG GUM BUC PRN (13:22)
[2021-12-17] MEDS ORDERED: MAGNESIUM HYDROX 2400MG/30ML ORAL SUSPENSION 30 ML CUP PO PRN (13:22)
[2021-12-17] MEDS ORDERED: MAG HYDROX/AL HYDROX/SIMETH 30 ML UNIT-DOSE CUP PO PRN (13:22)
[2021-12-17] MEDS ORDERED: guaiFENesin 200 MG/10 ML 10 ML UNIT-DOSE CUPS PO PRN (13:22)
[2021-12-17] MEDS ORDERED: MAGNESIUM CITRATE 300 ML BOTTLE PO PRN (13:22)
[2021-12-17] MEDS ORDERED: ALBUTEROL SO4 HFA INHALER IH PRN (13:27)
[2021-12-17] MEDS ORDERED: methaDONE HCL 40 MG DISPERSABLE TABLET PO SCH (13:30)
[2021-12-17 16:05] LABS: HEMATOCRIT 35.6 % (32.4-45.2); HEMOGLOBIN 11.6 GM/dL (10.7-15.3); MCH 32.6 pg (25.7-33.7); MCHC 32.4 g/dl (32.0-36.0); MEAN CELL VOLUME 100.4 fl (80-96); MEAN PLT VOLUME 7.3 fl (7.5-11.1); PLATELET COUNT 298 10^3/uL (134-434); RBC 3.55 M/mm3 (3.60-5.2); RDW 13.2 % (11.6-15.6); WHITE BLOOD COUNT 8.6 K/mm3 (4.0-10.0)
[2021-12-17 16:10] LABS: ALBUMIN 3.5 g/dl (3.4-5.0); CALCIUM 8.9 mg/dL (8.5-10.1)
[2021-12-17 16:13] LABS: CREATININE 1.1 mg/dL (0.55-1.3)
[2021-12-17 16:15] LABS: BILIRUBIN,TOTAL 0.7 mg/dL (0.2-1); TOT PROT 7.3 g/dl (6.4-8.2)
[2021-12-17 16:35] LABS: SYPHILIS W/ RPR CONF NON-REACTIVE (NONREACTIVE)
[2021-12-17] MEDS ORDERED: methaDONE HCL 40 MG DISPERSABLE TABLET PO ONE (18:15)
[2021-12-17] MEDS: NICOTINE 7 MG/24 HOURS TOPICAL PATCH TD SCH (20:20)
[2021-12-17] MEDS: PRENATAL VITAMINS W/ FOLIC ACID TABLET (FP) PO SCH (20:20)
[2021-12-17] MEDS: LISINOPRIL 10 MG TABLET PO SCH (20:36)
[2021-12-17] MEDS: amLODIPine BESYLATE 10 MG TABLET (FP) PO SCH (20:36)
[2021-12-17] MEDS: hydrOXYzine PAMOATE 25 MG CAPSULE (FP) PO SCH ×2 (20:40→20:41)
[2021-12-17] MEDS: MELATONIN 5 MG TABLETS PO SCH (21:42)
[2021-12-17] MEDS: THIAMINE HCL 100 MG TABLET (FP) PO SCH (21:42)
[2021-12-18] MEDS: methaDONE HCL 40 MG DISPERSABLE TABLET PO SCH (06:22)
[2021-12-18] MEDS: NICOTINE 7 MG/24 HOURS TOPICAL PATCH TD SCH (10:49)
[2021-12-18] MEDS: amLODIPine BESYLATE 10 MG TABLET (FP) PO SCH (10:52)
[2021-12-18] MEDS: LISINOPRIL 10 MG TABLET PO SCH (10:52)
[2021-12-18] MEDS: PRENATAL VITAMINS W/ FOLIC ACID TABLET (FP) PO SCH (10:52)
[2021-12-18 13:57] LABS: EPI CELLS >36 /uL (0-25.1); HYALINE CASTS 6 /uL (0-3.1); URINE APPEARANCE CLOUDY; URINE BACTERIA 3443 /uL (0-1359); URINE BILIRUBIN NEGATIVE (NEGATIVE); URINE COLOR YELLOW; URINE GLUCOSE (UA) NEGATIVE (NEGATIVE); URINE KETONE NEGATIVE (NEGATIVE); URINE LEUK ESTERASE TRACE (NEGATIVE); URINE NITRITE NEGATIVE (NEGATIVE); URINE PROTEIN TRACE (NEGATIVE); URINE RBC 11 /uL (0-23.9); URINE WBC 100 /uL (0-25.8)
[2021-12-18] MEDS: ARIPiprazole 10 MG TABLET PO SCH (14:40)
[2021-12-18] MEDS: THIAMINE HCL 100 MG TABLET (FP) PO SCH (21:30)
[2021-12-18] MEDS: MELATONIN 5 MG TABLETS PO SCH (21:31)
[2021-12-18] MEDS ORDERED: POTASSIUM CHLORIDE TABS 20 MEQ TABLET.ER (FP) PO ONE (22:45)
[2021-12-19] MEDS: methaDONE HCL 40 MG DISPERSABLE TABLET PO SCH (06:10)
[2021-12-19] MEDS ORDERED: POTASSIUM CHLORIDE TABS 20 MEQ TABLET.ER (FP) PO ONE (10:00)
[2021-12-19] MEDS: ARIPiprazole 10 MG TABLET PO SCH (10:25)
[2021-12-19] MEDS: PRENATAL VITAMINS W/ FOLIC ACID TABLET (FP) PO SCH (10:25)
[2021-12-19] MEDS: LISINOPRIL 10 MG TABLET PO SCH (10:25)
[2021-12-19] MEDS: amLODIPine BESYLATE 10 MG TABLET (FP) PO SCH (10:25)
[2021-12-19] MEDS: NICOTINE 7 MG/24 HOURS TOPICAL PATCH TD SCH (10:26)
[2021-12-19] MEDS: MELATONIN 5 MG TABLETS PO SCH (21:26)
[2021-12-19] MEDS: POTASSIUM CHLORIDE ORAL LIQUID 20 MEQ/15 ML PO SCH (21:27)
[2021-12-19] MEDS: THIAMINE HCL 100 MG TABLET (FP) PO SCH (21:28)
[2021-12-20] MEDS: methaDONE HCL 40 MG DISPERSABLE TABLET PO SCH (06:13)
[2021-12-20] MEDS: PRENATAL VITAMINS W/ FOLIC ACID TABLET (FP) PO SCH (10:32)
[2021-12-20] MEDS: LISINOPRIL 10 MG TABLET PO SCH (10:32)
[2021-12-20] MEDS: ARIPiprazole 10 MG TABLET PO SCH (10:32)
[2021-12-20] MEDS: amLODIPine BESYLATE 10 MG TABLET (FP) PO SCH (10:32)
[2021-12-20] MEDS: POTASSIUM CHLORIDE ORAL LIQUID 20 MEQ/15 ML PO SCH ×2 (10:32→21:45)
[2021-12-20] MEDS: NICOTINE 7 MG/24 HOURS TOPICAL PATCH TD SCH (10:33)
[2021-12-20] MEDS: NICOTINE 10 MG CARTRIDGE (INHALER) IH PRN (10:34)
[2021-12-20] MEDS: ARTIFICIAL TEARS (POLYVINYL ALCOHOL) OPTH DROPS OU PRN (21:44)
[2021-12-20] MEDS: THIAMINE HCL 100 MG TABLET (FP) PO SCH (21:45)
[2021-12-20] MEDS: MELATONIN 5 MG TABLETS PO SCH (21:45)
[2021-12-21] MEDS: methaDONE HCL 40 MG DISPERSABLE TABLET PO SCH (06:11)
[2021-12-21] MEDS: PRENATAL VITAMINS W/ FOLIC ACID TABLET (FP) PO SCH (10:23)
[2021-12-21] MEDS: amLODIPine BESYLATE 10 MG TABLET (FP) PO SCH (10:24)
[2021-12-21] MEDS: LISINOPRIL 10 MG TABLET PO SCH (10:24)
[2021-12-21] MEDS: POTASSIUM CHLORIDE ORAL LIQUID 20 MEQ/15 ML PO SCH (10:24)
[2021-12-21] MEDS: ARIPiprazole 10 MG TABLET PO SCH (10:24)
[2021-12-21] MEDS: NICOTINE 7 MG/24 HOURS TOPICAL PATCH TD SCH (10:25)
[2021-12-21] MEDS: NICOTINE 10 MG CARTRIDGE (INHALER) IH PRN ×2 (10:25→21:55)
[2021-12-21] MEDS: MELATONIN 5 MG TABLETS PO SCH (21:55)
[2021-12-21] MEDS: hydrOXYzine PAMOATE 25 MG CAPSULE (FP) PO PRN (21:55)
[2021-12-21] MEDS: THIAMINE HCL 100 MG TABLET (FP) PO SCH (21:55)
[2021-12-22] MEDS: methaDONE HCL 40 MG DISPERSABLE TABLET PO SCH (06:03)
[2021-12-22] MEDS: PRENATAL VITAMINS W/ FOLIC ACID TABLET (FP) PO SCH (10:43)
[2021-12-22] MEDS: amLODIPine BESYLATE 10 MG TABLET (FP) PO SCH (10:44)
[2021-12-22] MEDS: NICOTINE 7 MG/24 HOURS TOPICAL PATCH TD SCH (10:44)
[2021-12-22] MEDS: NICOTINE 10 MG CARTRIDGE (INHALER) IH PRN (10:44)
[2021-12-22] MEDS: LISINOPRIL 10 MG TABLET PO SCH (10:45)
[2021-12-22] MEDS: ARIPiprazole 10 MG TABLET PO SCH (10:45)
[2021-12-22] MEDS: hydrOXYzine PAMOATE 25 MG CAPSULE (FP) PO PRN (21:57)
[2021-12-22] MEDS: THIAMINE HCL 100 MG TABLET (FP) PO SCH (21:57)
[2021-12-22] MEDS: MELATONIN 5 MG TABLETS PO SCH (21:57)
[2021-12-23] MEDS: methaDONE HCL 40 MG DISPERSABLE TABLET PO SCH (05:58)
[2021-12-23] MEDS: PRENATAL VITAMINS W/ FOLIC ACID TABLET (FP) PO SCH (11:06)
[2021-12-23] MEDS: ARIPiprazole 10 MG TABLET PO SCH (11:06)
[2021-12-23] MEDS: amLODIPine BESYLATE 10 MG TABLET (FP) PO SCH (11:06)
[2021-12-23] MEDS: NICOTINE 7 MG/24 HOURS TOPICAL PATCH TD SCH (11:06)
[2021-12-23] MEDS: ARTIFICIAL TEARS (POLYVINYL ALCOHOL) OPTH DROPS OU PRN (11:06)
[2021-12-23] MEDS: LISINOPRIL 10 MG TABLET PO SCH (11:07)
[2021-12-23] MEDS: THIAMINE HCL 100 MG TABLET (FP) PO SCH (22:02)
[2021-12-23] MEDS: hydrOXYzine PAMOATE 25 MG CAPSULE (FP) PO PRN (22:02)
[2021-12-23] MEDS: MELATONIN 5 MG TABLETS PO SCH (22:02)
[2021-12-24] MEDS: methaDONE HCL 40 MG DISPERSABLE TABLET PO SCH (06:13)
[2021-12-24] MEDS: NICOTINE 10 MG CARTRIDGE (INHALER) IH PRN (08:22)
[2021-12-24] MEDS: LISINOPRIL 10 MG TABLET PO SCH (10:19)
[2021-12-24] MEDS: ARIPiprazole 10 MG TABLET PO SCH (10:19)
[2021-12-24] MEDS: amLODIPine BESYLATE 10 MG TABLET (FP) PO SCH (10:19)
[2021-12-24] MEDS: PRENATAL VITAMINS W/ FOLIC ACID TABLET (FP) PO SCH (10:19)
[2021-12-24] MEDS: NICOTINE 7 MG/24 HOURS TOPICAL PATCH TD SCH (10:20)
[2021-12-24] MEDS: MELATONIN 5 MG TABLETS PO SCH (21:16)
[2021-12-24] MEDS: THIAMINE HCL 100 MG TABLET (FP) PO SCH (21:16)
[2021-12-24] MEDS: hydrOXYzine PAMOATE 25 MG CAPSULE (FP) PO PRN (21:16)
[2021-12-25] MEDS: methaDONE HCL 40 MG DISPERSABLE TABLET PO SCH (06:00)
[2021-12-25] MEDS: LISINOPRIL 10 MG TABLET PO SCH (10:01)
[2021-12-25] MEDS: NICOTINE 7 MG/24 HOURS TOPICAL PATCH TD SCH (10:01)
[2021-12-25] MEDS: PRENATAL VITAMINS W/ FOLIC ACID TABLET (FP) PO SCH (10:01)
[2021-12-25] MEDS: ARIPiprazole 10 MG TABLET PO SCH (10:01)
[2021-12-25] MEDS: amLODIPine BESYLATE 10 MG TABLET (FP) PO SCH (10:01)
[2021-12-25] MEDS: NICOTINE 10 MG CARTRIDGE (INHALER) IH PRN (10:02)
[2021-12-25] MEDS: MELATONIN 5 MG TABLETS PO SCH (21:10)
[2021-12-25] MEDS: THIAMINE HCL 100 MG TABLET (FP) PO SCH (21:10)
[2021-12-25] MEDS: hydrOXYzine PAMOATE 25 MG CAPSULE (FP) PO PRN (21:10)
[2021-12-25] MEDS: ARTIFICIAL TEARS (POLYVINYL ALCOHOL) OPTH DROPS OU PRN (21:12)
[2021-12-26] MEDS: methaDONE HCL 40 MG DISPERSABLE TABLET PO SCH (06:02)
[2021-12-26] MEDS: PRENATAL VITAMINS W/ FOLIC ACID TABLET (FP) PO SCH (09:47)
[2021-12-26] MEDS: LISINOPRIL 10 MG TABLET PO SCH (09:47)
[2021-12-26] MEDS: ARIPiprazole 10 MG TABLET PO SCH (09:47)
[2021-12-26] MEDS: NICOTINE 7 MG/24 HOURS TOPICAL PATCH TD SCH (09:48)
[2021-12-26] MEDS: amLODIPine BESYLATE 10 MG TABLET (FP) PO SCH (09:48)
[2021-12-26] MEDS: NICOTINE 10 MG CARTRIDGE (INHALER) IH PRN (10:06)
[2021-12-26] MEDS: THIAMINE HCL 100 MG TABLET (FP) PO SCH (21:59)
[2021-12-26] MEDS: MELATONIN 5 MG TABLETS PO SCH (21:59)
[2021-12-27] MEDS: methaDONE HCL 40 MG DISPERSABLE TABLET PO SCH (05:57)
[2021-12-27] MEDS: PRENATAL VITAMINS W/ FOLIC ACID TABLET (FP) PO SCH (10:55)
[2021-12-27] MEDS: LISINOPRIL 10 MG TABLET PO SCH (10:55)
[2021-12-27] MEDS: amLODIPine BESYLATE 10 MG TABLET (FP) PO SCH (10:56)
[2021-12-27] MEDS: ARIPiprazole 10 MG TABLET PO SCH (10:56)
[2021-12-27] MEDS: NICOTINE 7 MG/24 HOURS TOPICAL PATCH TD SCH (10:56)
[2021-12-27] MEDS: NICOTINE 10 MG CARTRIDGE (INHALER) IH PRN (10:56)
[2021-12-27] MEDS: ARTIFICIAL TEARS (POLYVINYL ALCOHOL) OPTH DROPS OU PRN (10:58)
[2021-12-27] MEDS: THIAMINE HCL 100 MG TABLET (FP) PO SCH (21:55)
[2021-12-27] MEDS: MELATONIN 5 MG TABLETS PO SCH (21:55)
[2021-12-28] MEDS: methaDONE HCL 40 MG DISPERSABLE TABLET PO SCH (06:32)
[2021-12-28] MEDS: PRENATAL VITAMINS W/ FOLIC ACID TABLET (FP) PO SCH (10:36)
[2021-12-28] MEDS: NICOTINE 7 MG/24 HOURS TOPICAL PATCH TD SCH (10:36)
[2021-12-28] MEDS: ARIPiprazole 10 MG TABLET PO SCH (10:40)
[2021-12-28] MEDS: amLODIPine BESYLATE 10 MG TABLET (FP) PO SCH (10:40)
[2021-12-28] MEDS: LISINOPRIL 10 MG TABLET PO SCH (10:40)
[2021-12-28] MEDS: MELATONIN 5 MG TABLETS PO SCH (23:00)
[2021-12-28] MEDS: THIAMINE HCL 100 MG TABLET (FP) PO SCH (23:00)
[2021-12-28] MEDS: hydrOXYzine PAMOATE 25 MG CAPSULE (FP) PO PRN (23:00)
[2021-12-29] MEDS: methaDONE HCL 40 MG DISPERSABLE TABLET PO SCH (05:34)
[2021-12-29] MEDS: amLODIPine BESYLATE 10 MG TABLET (FP) PO SCH (09:51)
[2021-12-29] MEDS: PRENATAL VITAMINS W/ FOLIC ACID TABLET (FP) PO SCH (09:51)
[2021-12-29] MEDS: LISINOPRIL 10 MG TABLET PO SCH (09:51)
[2021-12-29] MEDS: ARIPiprazole 10 MG TABLET PO SCH (09:51)
[2021-12-29] MEDS: NICOTINE 10 MG CARTRIDGE (INHALER) IH PRN ×2 (09:51→21:14)
[2021-12-29] MEDS: NICOTINE 7 MG/24 HOURS TOPICAL PATCH TD SCH (09:52)
[2021-12-29] MEDS: MELATONIN 5 MG TABLETS PO SCH (21:14)
[2021-12-29] MEDS: THIAMINE HCL 100 MG TABLET (FP) PO SCH (21:14)
[2021-12-30] MEDS: methaDONE HCL 40 MG DISPERSABLE TABLET PO SCH (06:01)
[2021-12-30] MEDS: ARIPiprazole 10 MG TABLET PO SCH (10:58)
[2021-12-30] MEDS: PRENATAL VITAMINS W/ FOLIC ACID TABLET (FP) PO SCH (10:58)
[2021-12-30] MEDS: NICOTINE 7 MG/24 HOURS TOPICAL PATCH TD SCH (10:59)
[2021-12-30] MEDS: amLODIPine BESYLATE 10 MG TABLET (FP) PO SCH (11:01)
[2021-12-30] MEDS: LISINOPRIL 10 MG TABLET PO SCH (11:01)
[2021-12-30] MEDS: NICOTINE 10 MG CARTRIDGE (INHALER) IH PRN (11:02)
[2021-12-30] MEDS: MELATONIN 5 MG TABLETS PO SCH (21:23)
[2021-12-30] MEDS: THIAMINE HCL 100 MG TABLET (FP) PO SCH (21:23)
[2021-12-31] MEDS: methaDONE HCL 40 MG DISPERSABLE TABLET PO SCH (05:17)
[2021-12-31 09:29] VITALS: BP 121/62; PULSE 81; TEMP 98.6
[2021-12-31] MEDS: PRENATAL VITAMINS W/ FOLIC ACID TABLET (FP) PO SCH (09:37)
[2021-12-31] MEDS: ARIPiprazole 10 MG TABLET PO SCH (09:38)
[2021-12-31] MEDS: amLODIPine BESYLATE 10 MG TABLET (FP) PO SCH (09:38)
[2021-12-31] MEDS: hydrOXYzine PAMOATE 25 MG CAPSULE (FP) PO PRN (09:38)
[2021-12-31] MEDS: LISINOPRIL 10 MG TABLET PO SCH (09:38)
[2021-12-31] MEDS: NICOTINE 7 MG/24 HOURS TOPICAL PATCH TD SCH (09:39)
== END 2021-12-31 09:40 | disposition home or self-care (01) | DRG 772 ==
LOC: YASAS 12:10 → Y5N 17:41
PROVIDERS: ADMIT Allergy & Immunology; ATTEND Psychiatry & Neurology Pain Medicine
PROC: HZ42ZZZ Group Counseling for Substance Abuse Treatment, Cognitive-Behavioral (ICD-10-PCS; principal; 2021-12-17)
DX: F14.20 Cocaine dependence, uncomplicated (principal); F11.20 Opioid dependence, uncomplicated; F16.10 Hallucinogen abuse, uncomplicated; F17.210 Nicotine dependence, cigarettes, uncomplicated; F31.9 Bipolar disorder, unspecified; F19.282 Other psychoactive substance dependence with psychoactive substance-induced sleep disorder; F19.280 Other psychoactive substance dependence with psychoactive substance-induced anxiety disorder; I10 Essential (primary) hypertension; J45.20 Mild intermittent asthma, uncomplicated; B18.2 Chronic viral hepatitis C; Z56.0 Unemployment, unspecified
CPT/HCPCS: 36415; 80053; 81003; 84132; 85027; 86780; 86803; 87086; 87522; C9803-CS; U0003; U0005

== ENCOUNTER 2023-09-09 16:04 | Inpatient (IN) | payer OTHER ==
[2023-09-09 16:40] VITALS: BMI 30.9
[2023-09-09] MEDS ORDERED: NALOXONE HCL 0.4 MG/ML VIAL ONE ×2 (16:53→19:06)
[2023-09-09 17:00] LABS: BASO % 0.2 % (0-2.0); EOS % 0.7 % (0-4.5); HEMATOCRIT 38.3 % (32.4-45.2); HEMOGLOBIN 12.6 GM/dL (10.7-15.3); LYMPH % 35.6 % (8-40); MEAN CELL VOLUME 103.1 fl (80-96); MONO % 9.6 % (3.8-10.2); NEUT % 53.9 % (42.8-82.8); PLATELET COUNT 224 10^3/uL (134-434); RBC 3.72 M/mm3 (3.60-5.2); RDW 13.4 % (11.6-15.6); WHITE BLOOD COUNT 6.9 K/mm3 (4.0-10.0)
[2023-09-09] MEDS: NALOXONE HCL 0.4 MG/ML VIAL IVPUSH ONE ×2 (17:01→20:03)
[2023-09-09] MEDS ORDERED: TRIMETHOBENZAMIDE HCL 200MG/2ML INJ IM ONE (17:03)
[2023-09-09] MEDS: TRIMETHOBENZAMIDE HCL 200MG/2ML INJ IM ONE (17:06)
[2023-09-09 17:27] LABS: POTASSIUM 4.1 mmol/L (3.5-5.1)
[2023-09-09 17:28] LABS: CALCIUM 8.9 mg/dL (8.5-10.1)
[2023-09-09 17:29] LABS: ALBUMIN 3.5 g/dl (3.4-5.0)
[2023-09-09 17:30] LABS: BLOOD UREA NITROGEN 29.4 mg/dL (7-18); INR 0.94 (0.83-1.09); PROTHROMBIN TIME (PATIENT) 10.9 SEC (9.7-13.0)
[2023-09-09 17:33] LABS: ACTIVATED PTT 30.1 SECONDS (25.2-36.5)
[2023-09-09 17:34] LABS: TOT PROT 7.4 g/dl (6.4-8.2)
[2023-09-09 17:35] LABS: BILIRUBIN,TOTAL 0.4 mg/dL (0.2-1)
[2023-09-09] MEDS: SODIUM CHLORIDE 1,000 ML IV SCH (18:50)
[2023-09-09] MEDS: ASPIRIN 81 MG CHEWABLE TABLETS PO ONE (20:26)
[2023-09-09] MEDS ORDERED: ASPIRIN 81 MG CHEWABLE TABLETS ONE (20:27)
[2023-09-09 20:28] LABS: EPI CELLS 12 /uL (0-25.1); HYALINE CASTS 0 /uL (0-3.1); PH,URINE 6.5 (5.0-8.0); URINE APPEARANCE CLEAR; URINE BACTERIA >9,000 /uL (0-1359); URINE BILIRUBIN NEGATIVE (NEGATIVE); URINE COLOR YELLOW; URINE GLUCOSE (UA) NEGATIVE (NEGATIVE); URINE KETONE NEGATIVE (NEGATIVE); URINE LEUK ESTERASE 1+ (NEGATIVE); URINE NITRITE POSITIVE (NEGATIVE); URINE PROTEIN NEGATIVE (NEGATIVE); URINE RBC 4 /uL (0-23.9); URINE WBC 64 /uL (0-25.8)
[2023-09-09 20:37] LABS: OPIATES, URI NEGATIVE (NEGATIVE)
[2023-09-09 20:39] LABS: COCAINE, UR POSITIVE (NEGATIVE); METHADONE, UR POSITIVE (NEGATIVE); PHENCYCLIDINE,URINE POSITIVE (NEGATIVE); URINE AMPHETAMINES NEGATIVE (NEGATIVE); URINE BARBITURATES NEGATIVE (NEGATIVE); URINE BENZODIAZEPINES NEGATIVE (NEGATIVE)
[2023-09-09] MEDS ORDERED: CEFTRIAXONE 1 GM/50 ML BAG ONE (20:55)
[2023-09-09] MEDS ORDERED: ATORVASTATIN CA 40 MG TABLET (FP) ONE (20:55)
[2023-09-09] MEDS: ATORVASTATIN CA 40 MG TABLET (FP) PO ONE (20:59)
[2023-09-10] MEDS ORDERED: NICOTINE 21 MG/24 HOURS TOPICAL PATCH TD PRN (00:34)
[2023-09-10] MEDS ORDERED: LORazepam 1 MG TABLET PO PRN (00:35)
[2023-09-10] MEDS: FOLIC ACID INJECTION - 1 MG, THIAMINE HCL 100 MG, MULTIVIT INJECTION ADULT 10 ML in SOD... IVPB ONE (00:42)
[2023-09-10 07:13] LABS: BASO % 0.3 % (0-2.0); EOS % 0.8 % (0-4.5); HEMATOCRIT 38.9 % (32.4-45.2); HEMOGLOBIN 12.7 GM/dL (10.7-15.3); LYMPH % 42.6 % (8-40); MCH 33.5 pg (25.7-33.7); MCHC 32.7 g/dl (32.0-36.0); MEAN CELL VOLUME 102.4 fl (80-96); MEAN PLT VOLUME 7.3 fl (7.5-11.1); MONO % 7.8 % (3.8-10.2); NEUT % 48.5 % (42.8-82.8); PLATELET COUNT 228 10^3/uL (134-434); RDW 13.2 % (11.6-15.6); WHITE BLOOD COUNT 6.7 K/mm3 (4.0-10.0)
[2023-09-10 07:20] LABS: POTASSIUM 3.9 mmol/L (3.5-5.1)
[2023-09-10 07:30] LABS: ALBUMIN 3.2 g/dl (3.4-5.0); BILIRUBIN,TOTAL 0.7 mg/dL (0.2-1); TOT PROT 6.8 g/dl (6.4-8.2)
[2023-09-10 07:31] LABS: BLOOD UREA NITROGEN 18.8 mg/dL (7-18); CALCIUM 8.1 mg/dL (8.5-10.1); MAGNESIUM 2.3 mg/dL (1.8-2.4)
[2023-09-10 07:32] LABS: PHOSPHOROUS 3.8 mg/dL (2.5-4.9)
[2023-09-10 07:34] LABS: CREATININE 0.8 mg/dL (0.55-1.3)
[2023-09-10] MEDS: CEFTRIAXONE 1 GM in DEXTROSE 5%-WATER - 50 ML IVPB SCH (11:10)
[2023-09-10] MEDS: FOLIC ACID 1 MG TABLET (FP) PO SCH (11:11)
[2023-09-10] MEDS: ENOXAPARIN NA (PORCINE) 40 MG/0.4 ML DISP.SYRIN SQ SCH (11:11)
[2023-09-10] MEDS: THIAMINE HCL 200 MG/2 ML VIAL IVPB SCH (11:11)
[2023-09-10] MEDS: ARIPiprazole 10 MG TABLET PO SCH (20:55)
[2023-09-11 07:36] LABS: BASO % 0.2 % (0-2.0); EOS % 0.9 % (0-4.5); HEMATOCRIT 37.3 % (32.4-45.2); HEMOGLOBIN 12.1 GM/dL (10.7-15.3); LYMPH % 47.6 % (8-40); MCH 33.5 pg (25.7-33.7); MCHC 32.4 g/dl (32.0-36.0); MEAN CELL VOLUME 103.4 fl (80-96); MEAN PLT VOLUME 7.3 fl (7.5-11.1); NEUT % 42.3 % (42.8-82.8); PLATELET COUNT 219 10^3/uL (134-434); RBC 3.61 M/mm3 (3.60-5.2); RDW 13.2 % (11.6-15.6); WHITE BLOOD COUNT 6.3 K/mm3 (4.0-10.0)
[2023-09-11 07:55] LABS: POTASSIUM 3.7 mmol/L (3.5-5.1)
[2023-09-11 08:06] LABS: CALCIUM 8.5 mg/dL (8.5-10.1)
[2023-09-11 08:07] LABS: BLOOD UREA NITROGEN 18.9 mg/dL (7-18)
[2023-09-11 08:11] LABS: CREATININE 0.9 mg/dL (0.55-1.3)
[2023-09-11 08:12] LABS: BILIRUBIN,TOTAL 0.6 mg/dL (0.2-1)
[2023-09-11 08:13] LABS: TOT PROT 6.5 g/dl (6.4-8.2)
[2023-09-11] MEDS: LISINOPRIL 10 MG TABLET PO SCH (09:58)
[2023-09-11] MEDS ORDERED: methaDONE HCL 10 MG TABLET PO SCH (12:45)
[2023-09-11 15:03] VITALS: BP 125/103; PULSE 76; RESP 22; TEMP 98.2
== END 2023-09-11 16:15 | disposition home or self-care (01) | DRG 463 ==
LOC: JER 16:04 → JERBED 21:32 → OBSVTOIN 23:41 → J4W 09-10 01:05
PROVIDERS: ADMIT Internal Medicine; ATTEND Internal Medicine
DX: N39.0 Urinary tract infection, site not specified (principal); G92.8 Other toxic encephalopathy; F14.20 Cocaine dependence, uncomplicated; F11.20 Opioid dependence, uncomplicated; I10 Essential (primary) hypertension; R55 Syncope and collapse; J45.909 Unspecified asthma, uncomplicated; F31.81 Bipolar II disorder; F17.210 Nicotine dependence, cigarettes, uncomplicated; F19.10 Other psychoactive substance abuse, uncomplicated; B18.2 Chronic viral hepatitis C; F16.10 Hallucinogen abuse, uncomplicated
CPT/HCPCS: 36415; 70450-TC; 70551-TC; 72125-TC; 80053; 80061; 80307; 81003; 82550; 82553; 83036; 83735; 84100; 84443; 84484; 85025; 85610; 85730; 86850; 86900; 86901; 87040; 87086; 87186; 93005; 93010; 93306-TC; 93880-TC; 97116-GP; 97162-GP; 99285-25; G0378; G0463-25